=== PATIENT | male | born 1980 | race Caucasian/White ===

== ENCOUNTER 2022-11-04 08:27 | Emergency (ER) | payer MEDICAID, SELFPAY ==
[2022-11-04 08:36] VITALS: BP 154/94; PULSE 86; RESP 16; TEMP 36.3; O2SAT 99
--- NOTE | 2022-11-04 08:42 | ED.URI ---
HPI - URI/Sore Throat General Chief Complaint: Ear Stated Complaint: earache Time Seen by Provider: 11/04/22 08:35 Source: patient and RN notes reviewed History of Present Illness HPI Narrative: Patient is a 42-year-old male who presents to urgent care with complaints of right ear swelling, and pain. Patient states it started on Wednesday. States this has happened in the past. Denies any injury to the ear. Denies any fever, nausea or vomiting. Patient has been using [id number] ear drops as well as alternating Tylenol and ibuprofen. No other acute complaints. No acute distress noted. Patient aware of the plan of care. Some parts of this dictation were generated by voice recognition software and may contain typographical and/or grammatical inaccuracies. Related Data Home Medications Medication Instructions Recorded Confirmed atorvastatin 10 mg tablet 10 mg PO DAILY 11/04/22 11/04/22 Allergies Allergy/AdvReac Type Severity Reaction Status Date / Time No Known Allergies Allergy Verified 11/04/22 08:42 Review of Systems Review of Systems: CONSTITUTIONAL: Denies fever, chills, or sweats. EYES: Denies visual changes, redness, or discharge. ENT: Denies rhinorrhea, congestion, sore throat. Reports of right otalgia with swelling CARDIOVASCULAR: Denies chest pain, palpitations, or edema. RESPIRATORY: Denies cough or dyspnea. GASTROINTESTINAL: Denies abdominal pain, nausea, vomiting, or diarrhea. GENITOURINARY: Denies dysuria or hematuria. SKIN: Denies rash or itching. MUSCULOSKELETAL: Denies back pain, joint pain, or myalgia. NEUROLOGIC: Denies headache, numbness, or weakness. All other systems reviewed are negative, except as documented in HPI. PMFSH Comments At the time of my signature, I reviewed and agree with the nursing past medical, surgical, social, and family history. There is no relevant family history pertinent to the patient complaint. Exam Narrative: GENERAL: This is a well-nourished, well-developed patient, in no apparent distress. HEAD: normocephalic, atraumatic. EYES: PERRL. Sclera clear/white. Vision is grossly intact. EARS: Left External ear normal, left auditory canals clear and without drainage, moderate erythema and edema to the right external auditory canal as well as the right external ear without drainage. Unable to visualize right TM due to edema. Left TM normal without perforation. Hearing grossly intact. NOSE: External nose normal with no obvious nasal discharge, nares without redness, no rhinorrhea. THROAT: Mucous membranes moist NECK: Neck supple, non-tender without lymphadenopathy SKIN: warm, intact with no suspicious lesions or rash, good texture and turgor. NEURO: awake, alert, and oriented to person, place and time. There were no obvious focal neurologic abnormalities. EXTREMITIES: No clubbing, cyanosis, or edema. Course Course Level of Care: Express Care Visit Vital Signs Vital signs: Vital Signs Temperature 97.4 F L 11/04/22 08:36 Pulse Rate 86 11/04/22 08:36 Respiratory Rate 16 11/04/22 08:36 Blood Pressure 154/94 H 11/04/22 08:36 Pulse Oximetry 99 11/04/22 08:36 Oxygen Delivery Room Air 11/04/22 08:36 Temperature 97.4 F L 11/04/22 08:36 Pulse Rate 86 11/04/22 08:36 Respiratory Rate 16 11/04/22 08:36 Blood Pressure 154/94 H 11/04/22 08:36 Pulse Oximetry 99 11/04/22 08:36 Oxygen Delivery Room Air 11/04/22 08:36 Reviewed- Patient is informed that they may have pre-hypertension or hypertension based on a blood pressure reading in the department. I recommend the patient call the primary care provider listed on their discharge instructions or a physician of their choice this week to arrange follow-up for further evaluation of possible pre-hypertension or hypertension. MDM - URI/Sore Throat MDM Narrative Medical decision making narrative: Advised patient to use a cool compress to the ear for discomfort. Continue Tylenol/ibuprofen as
== END 2022-11-04 08:58 | disposition home or self-care (01) ==
PROVIDERS: Emergency Provider Nurse Practitioner Family
DX: H61.001 Unspecified perichondritis of right external ear (principal); E78.00 Pure hypercholesterolemia, unspecified; I10 Essential (primary) hypertension
CPT/HCPCS: 99213; G0463